=== PATIENT | male | born 1975 | race African-American/Black ===

== ENCOUNTER 2024-07-24 03:33 | Emergency (ER) | payer MEDICAID ==
[~2024-07-24] VITALS: Ht 165.1 cm; Wt 66.0 kg
[2024-07-24 03:45] VITALS: TEMP 98.3; O2SAT 98
[2024-07-24 04:52] VITALS: BP 132/78; PULSE 78; RESP 16; O2SAT 97
[2024-07-24] MEDS: ACETAMINOPHEN 325MG TABLET PO ONE (04:52)
== END 2024-07-24 04:52 | disposition home or self-care (01) ==
LOC: ER 03:33
DX: B34.9 Viral infection, unspecified (principal)
CPT/HCPCS: 99282